=== PATIENT | female | born 1950 | race Two or more races ===

== ENCOUNTER 2024-05-21 14:02 | Inpatient (IN) | payer MEDICARE, MEDICAID ==
[~2024-05-21] VITALS: Ht 160 cm; Wt 58.5 kg
[2024-05-21 17:05] VITALS: BP 138/73; PULSE 85; RESP 18; TEMP 98.2; O2SAT 98
[2024-05-21] MEDS ORDERED: ACETAMINOPHEN 325 MG TABLET PO PRN (18:15)
[2024-05-21 20:00] VITALS: BP 149/71; PULSE 66; RESP 18; TEMP 98; O2SAT 98
[2024-05-21] MEDS: DOCUSATE SODIUM 100 MG CAPSULE PO SCH (20:39)
[2024-05-21] MEDS: ETHYL ALCOHOL 62% ANTISEPTIC NASAL SANITIZER 0.6 ML AMPUL NASAL SCH (20:39)
[2024-05-21] MEDS: MELATONIN 5 MG TABLET PO PRN (20:39)
[2024-05-21] MEDS: SENNOSIDES 8.6 MG TABLET PO SCH (20:40)
[2024-05-21] MEDS: MELATONIN 5 MG TABLET PO SCH (20:57)
[2024-05-21 21:51] LABS: GLUCOMETER DEV NAME(LOC) 2WR.2B; GLUCOSE,POINT OF CARE 204 MG/DL (70-110)
[2024-05-22 03:27] VITALS: O2SAT 98
[2024-05-22] MEDS: ALENDRONATE SODIUM 70 MG TABLET PO SCH (06:00)
[2024-05-22 06:51] LABS: GLUCOMETER DEV NAME(LOC) 2WR.1D; GLUCOSE,POINT OF CARE 182 MG/DL (70-110)
[2024-05-22 08:10] VITALS: BP 161/73; PULSE 64; RESP 18; TEMP 98.2; O2SAT 94
[2024-05-22] MEDS: MetFORMIN HCL 500 MG TABLET PO SCH (08:31)
[2024-05-22] MEDS: ASPIRIN 81 MG CHEWABLE TABLET PO SCH (08:32)
[2024-05-22] MEDS: LOSARTAN POTASSIUM 50 MG TABLET PO SCH (08:33)
[2024-05-22] MEDS: CETIRIZINE HCL 10 MG TABLET PO SCH (08:33)
[2024-05-22] MEDS: MULTIVITAMINS WITH MINERALS, THERAPEUTIC TABLET PO SCH (08:33)
[2024-05-22 09:01] LABS: BASOPHILS % (AUTO) 1.7 % (0.0-2.0); EOSINOPHILS % (AUTO) 3.8 % (1.0-6.0); HEMATOCRIT 37.3 % (36-46); HEMOGLOBIN 12.5 g/dL (12.0-16.0); LYMPHOCYTES # (AUTO) 1.5 K/uL (1.0-4.8); LYMPHOCYTES % (AUTO) 24.9 % (22.0-44.0); MEAN CORPUSCULAR HEMOGLOBIN 30.1 pg (26.0-34.0); MEAN CORPUSCULAR HGB CONC 33.5 G/dL (31.0-37.0); MEAN CORPUSCULAR VOLUME 90 fL (80-100); MONOCYTES # (AUTO) 0.5 K/uL (0.1-1.0); MONOCYTES % (AUTO) 9.1 % (2.0-9.0); NEUTROPHILS # (AUTO) 3.6 K/uL (1.8-7.7); NEUTROPHILS % (AUTO) 60.5 % (40.0-70.0); PLATELET COUNT (AUTO) 352 K/uL (150-450); RED BLOOD CELL COUNT(AUTO) 4.14 MIL/uL (4.00-5.20); RED CELL DISTRIBUTION WIDTH 13.5 % (11.5-14.5); WHITE BLOOD COUNT (AUTO) 5.9 K/uL (4.5-11.0)
[2024-05-22 09:17] LABS: ALANINE AMINOTRANSFERASE 31 U/L (12-78); ALBUMIN 2.1 g/dL (3.4-5.0); ALKALINE PHOSPHATASE 127 U/L (46-116); ANION GAP 6 mmol/L (8-16); ASPARTATE AMINOTRANSFERASE 21 U/L (15-37); BILIRUBIN,TOTAL 0.4 mg/dL (0.1-1.0); CALCIUM, TOTAL 8.2 mg/dL (8.8-10.5); CARBON DIOXIDE 26 mmol/L (22-29); CHLORIDE 101 mmol/L (98-107); CREATININE 0.86 mg/dL (0.60-1.30); GLOMERULAR FILTR. RATE CALC > 60 mL/min (>60); GLUCOSE,RANDOM 188 mg/dL (70-110); POTASSIUM 4.1 mmol/L (3.5-5.1); SODIUM SERUM 133 mmol/L (136-145); TOTAL PROTEIN, SERUM 6.1 g/dL (6.4-8.2); UREA NITROGEN, BLOOD 20 mg/dL (7-18)
[2024-05-22 13:00] VITALS: BP 142/70; PULSE 63
[2024-05-22 13:36] LABS: GLUCOMETER DEV NAME(LOC) 2WR.1D; GLUCOSE,POINT OF CARE 247 MG/DL (70-110)
[2024-05-22] MEDS: ENOXAPARIN SODIUM 40 MG/0.4 ML PF SYRINGE SQ SCH (13:51)
[2024-05-22] MEDS ORDERED: DEXTROSE 50%-WATER 25 GM/50 ML SYRINGE IVP PRN (17:15)
[2024-05-22 18:36] LABS: GLUCOMETER DEV NAME(LOC) 2WR.1D; GLUCOSE,POINT OF CARE 148 MG/DL (70-110)
[2024-05-22] MEDS: INSULIN LISPRO 100 UNITS/ML SQ PRN (18:36)
[2024-05-22 20:10] VITALS: BP 156/73; PULSE 69; RESP 18; TEMP 98.6; O2SAT 95
[2024-05-22] MEDS ORDERED: DOCUSATE SODIUM 250 MG CAPSULE PO PRN (20:15)
[2024-05-22] MEDS: ATORVASTATIN CALCIUM 40 MG TABLET PO SCH (20:17)
[2024-05-22] MEDS: DOCUSATE SODIUM 250 MG CAPSULE PO SCH (20:17)
[2024-05-22 23:14] VITALS: O2SAT 95
[2024-05-23 06:51] LABS: GLUCOMETER DEV NAME(LOC) 2WR.1D; GLUCOSE,POINT OF CARE 131 MG/DL (70-110)
[2024-05-23 08:02] VITALS: BP 163/64; PULSE 58; RESP 18; TEMP 98.5; O2SAT 95
[2024-05-23 09:45] VITALS: BP 142/58; PULSE 64
[2024-05-23 17:30] LABS: GLUCOMETER DEV NAME(LOC) 2WR.1D; GLUCOSE,POINT OF CARE 103 MG/DL (70-110)
[2024-05-23 20:33] VITALS: BP 137/53; PULSE 68; RESP 18; TEMP 97.9; O2SAT 97
[2024-05-23] MEDS: TraZODone HCL 50 MG TABLET PO PRN (20:33)
[2024-05-23 20:54] VITALS: O2SAT 97
[2024-05-24 07:15] LABS: GLUCOMETER DEV NAME(LOC) 2WR.1D; GLUCOSE,POINT OF CARE 165 MG/DL (70-110)
[2024-05-24] MEDS: AmLODIPine BESYLATE 2.5 MG TABLET PO SCH (07:42)
[2024-05-24 08:05] VITALS: BP 131/68; PULSE 68; RESP 18; TEMP 98.2; O2SAT 98
[2024-05-24] MEDS ORDERED: MIDODRINE HCL 2.5 MG TABLET PO SCH (11:00)
[2024-05-24 12:27] VITALS: O2SAT 98
[2024-05-24 16:36] LABS: GLUCOMETER DEV NAME(LOC) 2WR.1D; GLUCOSE,POINT OF CARE 149 MG/DL (70-110)
[2024-05-24 20:30] VITALS: BP 150/70; PULSE 63; RESP 18; TEMP 97.8; O2SAT 98
[2024-05-24 22:13] VITALS: O2SAT 98
[2024-05-25 06:56] LABS: GLUCOMETER DEV NAME(LOC) 2WR.1D; GLUCOSE,POINT OF CARE 142 MG/DL (70-110)
[2024-05-25 08:00] VITALS: BP 143/62; PULSE 63; RESP 18; TEMP 98.3; O2SAT 98
[2024-05-25 17:56] LABS: GLUCOMETER DEV NAME(LOC) 2WR.2B; GLUCOSE,POINT OF CARE 157 MG/DL (70-110)
[2024-05-25 21:00] VITALS: BP 149/65; PULSE 66; RESP 19; TEMP 98.1; O2SAT 97
[2024-05-25 22:26] VITALS: O2SAT 97
[2024-05-26 06:56] LABS: GLUCOMETER DEV NAME(LOC) 2WR.2B; GLUCOSE,POINT OF CARE 120 MG/DL (70-110)
[2024-05-26 08:00] VITALS: BP 143/57; PULSE 65; RESP 18; TEMP 98.1; O2SAT 97
[2024-05-26] MEDS: MetFORMIN HCL 850 MG TABLET PO SCH (17:01)
[2024-05-26 17:21] LABS: GLUCOMETER DEV NAME(LOC) 2WR.2B; GLUCOSE,POINT OF CARE 141 MG/DL (70-110)
[2024-05-26 20:00] VITALS: BP 163/70; PULSE 67; RESP 18; TEMP 98.1; O2SAT 97
[2024-05-26] MEDS: TraZODone HCL 50 MG TABLET PO PRN (21:32)
[2024-05-27 07:16] LABS: GLUCOMETER DEV NAME(LOC) 2WR.1D; GLUCOSE,POINT OF CARE 148 MG/DL (70-110)
[2024-05-27] MEDS: AmLODIPine BESYLATE 5 MG TABLET PO SCH (07:51)
[2024-05-27 08:05] VITALS: BP 138/64; PULSE 68; RESP 18; TEMP 98.5; O2SAT 98
[2024-05-27 08:30] VITALS: O2SAT 98
[2024-05-27 17:15] LABS: GLUCOMETER DEV NAME(LOC) 2WR.1D; GLUCOSE,POINT OF CARE 125 MG/DL (70-110)
[2024-05-27 20:00] VITALS: BP 150/58; PULSE 73; RESP 18; TEMP 98.4; O2SAT 97
[2024-05-28] MEDS ORDERED: METF-1185 PO (02:44)
[2024-05-28] MEDS ORDERED: SENN-376 PO (02:44)
[2024-05-28] MEDS ORDERED: LOSA-382 PO (02:44)
[2024-05-28] MEDS ORDERED: DOCU-412 PO (02:44)
[2024-05-28] MEDS ORDERED: ATOR40TA28 PO (02:44)
[2024-05-28] MEDS ORDERED: ALEN70TA65 PO (02:44)
[2024-05-28] MEDS ORDERED: MULT-1303 PO (02:44)
[2024-05-28] MEDS ORDERED: AMLO-258 PO (02:44)
[2024-05-28] MEDS ORDERED: INSU100V SQ (02:44)
[2024-05-28] MEDS ORDERED: TRAZ-252 PO (02:44)
[2024-05-28] MEDS ORDERED: ASPI-1450 PO (02:46)
[2024-05-28 06:46] LABS: GLUCOMETER DEV NAME(LOC) 2WR.2B; GLUCOSE,POINT OF CARE 111 MG/DL (70-110)
[2024-05-28 08:03] VITALS: BP 136/65; PULSE 64; RESP 18; TEMP 97.7; O2SAT 97
[2024-05-28] MEDS: AmLODIPine BESYLATE 5 MG TABLET PO SCH (08:05)
[2024-05-28 12:53] VITALS: O2SAT 98
[2024-05-28 18:05] LABS: GLUCOMETER DEV NAME(LOC) 2WR.1D; GLUCOSE,POINT OF CARE 208 MG/DL (70-110)
[2024-05-28 20:00] VITALS: BP 138/64; PULSE 69; RESP 18; TEMP 98.2; O2SAT 99
[2024-05-29 06:50] LABS: GLUCOMETER DEV NAME(LOC) 2WR.2B; GLUCOSE,POINT OF CARE 110 MG/DL (70-110)
[2024-05-29 08:00] VITALS: BP 130/46; PULSE 59; RESP 18; TEMP 97.8; O2SAT 97
[2024-05-29 17:40] LABS: GLUCOMETER DEV NAME(LOC) 2WR.1D; GLUCOSE,POINT OF CARE 108 MG/DL (70-110)
[2024-05-29 20:00] VITALS: BP 132/55; PULSE 64; RESP 18; TEMP 98.1; O2SAT 98
[2024-05-30 06:55] LABS: GLUCOMETER DEV NAME(LOC) 2WR.2B; GLUCOSE,POINT OF CARE 99 MG/DL (70-110)
[2024-05-30 08:00] VITALS: BP 148/62; PULSE 63; RESP 19; TEMP 98; O2SAT 97
[2024-05-30 18:16] LABS: GLUCOMETER DEV NAME(LOC) 2WR.1D; GLUCOSE,POINT OF CARE 105 MG/DL (70-110)
[2024-05-30 20:00] VITALS: BP 142/59; PULSE 69; RESP 20; TEMP 97.8; O2SAT 100
[2024-05-31 07:02] LABS: GLUCOMETER DEV NAME(LOC) 2WR.1D; GLUCOSE,POINT OF CARE 110 MG/DL (70-110)
[2024-05-31 08:15] VITALS: BP 129/59; PULSE 58; RESP 19; TEMP 98.1; O2SAT 97
[2024-05-31 18:51] LABS: GLUCOMETER DEV NAME(LOC) 2WR.2B; GLUCOSE,POINT OF CARE 169 MG/DL (70-110)
[2024-05-31 19:30] VITALS: BP 144/60; PULSE 80; RESP 18; TEMP 98.1; O2SAT 97
[2024-05-31 21:41] VITALS: O2SAT 97
[2024-06-01 07:01] LABS: GLUCOMETER DEV NAME(LOC) 2WR.1D; GLUCOSE,POINT OF CARE 130 MG/DL (70-110)
[2024-06-01 08:05] VITALS: BP 143/67; PULSE 75; RESP 18; TEMP 97.6; O2SAT 98
[2024-06-01 09:28] VITALS: O2SAT 98
[2024-06-01 16:25] LABS: GLUCOMETER DEV NAME(LOC) 2WR.2B; GLUCOSE,POINT OF CARE 119 MG/DL (70-110)
[2024-06-01] MEDS: TraZODone HCL 100 MG TABLET PO PRN (19:51)
[2024-06-01 20:00] VITALS: BP 140/64; PULSE 69; RESP 18; TEMP 97.6; O2SAT 100
[2024-06-01 21:00] VITALS: O2SAT 99
[2024-06-01 23:00] VITALS: O2SAT 96
[2024-06-02 01:00] VITALS: O2SAT 96
[2024-06-02 03:00] VITALS: O2SAT 99
[2024-06-02 06:00] VITALS: O2SAT 98
[2024-06-02 06:50] LABS: GLUCOMETER DEV NAME(LOC) 2WR.1D; GLUCOSE,POINT OF CARE 115 MG/DL (70-110)
[2024-06-02 08:05] VITALS: BP 136/74; PULSE 66; RESP 19; TEMP 98.9; O2SAT 97
[2024-06-02 09:06] VITALS: O2SAT 98
[2024-06-02 20:00] VITALS: BP 134/59; PULSE 74; RESP 18; TEMP 97.3; O2SAT 100
[2024-06-02] MEDS: TEMAZEPAM 15 MG CAPSULE PO SCH (20:26)
[2024-06-02 20:56] LABS: GLUCOMETER DEV NAME(LOC) 2WR.1D; GLUCOSE,POINT OF CARE 206 MG/DL (70-110)
[2024-06-03 06:45] LABS: GLUCOMETER DEV NAME(LOC) 2WR.1D; GLUCOSE,POINT OF CARE 120 MG/DL (70-110)
[2024-06-03 08:00] VITALS: BP 135/58; PULSE 60; RESP 19; TEMP 98.1; O2SAT 97
[2024-06-03 17:50] LABS: GLUCOMETER DEV NAME(LOC) 2WR.2B; GLUCOSE,POINT OF CARE 128 MG/DL (70-110)
[2024-06-03 20:47] VITALS: BP 143/58; PULSE 68; RESP 19; TEMP 98; O2SAT 100
[2024-06-03 20:48] VITALS: O2SAT 100
[2024-06-04 07:01] LABS: GLUCOMETER DEV NAME(LOC) 2WR.1D; GLUCOSE,POINT OF CARE 109 MG/DL (70-110)
[2024-06-04 08:47] VITALS: BP 138/74; PULSE 78; RESP 18; TEMP 98.1; O2SAT 98
[2024-06-04 08:48] VITALS: O2SAT 98
[2024-06-04] MEDS ORDERED: ASPI-1450 PO (12:08)
[2024-06-04] MEDS ORDERED: ALEN70TA65 PO (12:08)
[2024-06-04] MEDS ORDERED: AMLO-258 PO (12:08)
[2024-06-04] MEDS ORDERED: TRAZ-252 PO (12:08)
[2024-06-04] MEDS ORDERED: ATOR40TA28 PO (12:08)
[2024-06-04] MEDS ORDERED: METF-1185 PO (12:08)
[2024-06-04] MEDS ORDERED: LOSA-382 PO (12:08)
[2024-06-04 16:36] LABS: GLUCOMETER DEV NAME(LOC) 2WR.1D; GLUCOSE,POINT OF CARE 132 MG/DL (70-110)
[2024-06-04 20:00] VITALS: BP 141/64; PULSE 67; RESP 18; TEMP 98.3; O2SAT 96
[2024-06-05 07:00] LABS: GLUCOMETER DEV NAME(LOC) 2WR.2B; GLUCOSE,POINT OF CARE 114 MG/DL (70-110)
[2024-06-05 08:00] VITALS: BP 135/61; PULSE 62; RESP 18; TEMP 98.3; O2SAT 98
== END 2024-06-05 10:45 | disposition home health service (06) | DRG 56 ==
LOC: 2WR 16:50
PROVIDERS: ADMIT Physical Medicine & Rehabilitation; ATTEND Physical Medicine & Rehabilitation
DX: G81.91 Hemiplegia, unspecified affecting right dominant side (principal); I63.29 Cerebral infarction due to unspecified occlusion or stenosis of other precerebral arteries; E22.2 Syndrome of inappropriate secretion of antidiuretic hormone; E46 Unspecified protein-calorie malnutrition; E11.9 Type 2 diabetes mellitus without complications; I10 Essential (primary) hypertension; Z74.09 Other reduced mobility; R13.10 Dysphagia, unspecified; R47.1 Dysarthria and anarthria; M81.0 Age-related osteoporosis without current pathological fracture; E03.8 Other specified hypothyroidism; E78.5 Hyperlipidemia, unspecified; F51.04 Psychophysiologic insomnia; R29.810 Facial weakness; E73.9 Lactose intolerance, unspecified; D32.0 Benign neoplasm of cerebral meninges; Z68.22 Body mass index [BMI] 22.0-22.9, adult
CPT/HCPCS: 80053; 82962; 85025; 87081; 92507; 92523; 93970; 94760; 97110; 97112; 97116; 97150; 97162; 97167; 97530; 97535; 99366; J1650